=== PATIENT | female | born 1970 | race Caucasian/White ===

== ENCOUNTER 2021-01-12 12:34 | Emergency (ER) | payer BC, SELFPAY ==
[2021-01-12 12:40] VITALS: BP 129/60; PULSE 82; RESP 16; TEMP 36.8; O2SAT 98
[2021-01-12] MEDS: Balanced Salt Solution 15 ML BTL (12:54)
[2021-01-12] MEDS: Fluorescein STRIPS 100/BOX 1 MG (12:54)
--- NOTE | 2021-01-12 13:00 | ED.GENADUL_ITS ---
Discharge Plan Disposition Patient Disposition: HOME Condition: Improving Discharge Details Clinical Impression: Abrasion of left cornea Primary Care Provider: Niya Angel ED Provider: Faisal Malagon Home Meds and New Rx's Prescriptions: Continued lorazepam [Ativan] 0.5 mg Tablet 0.5 mg PO PRN PRNRF: 0 zolpidem [Ambien] 10 mg Tablet 10 mg PO RF: 0 bupropion HCl [Wellbutrin XL] 150 mg Tablet Extended Release 24 Hr 1 mg PO BID RF: 0 Discharge Instructions Instructions: Corneal Abrasion (ED) Additional Instructions: Please use a cool compress to reduce discomfort. May use Tylenol and ibuprofen as needed for pain. We will ask our care management team to arrange a follow-up for you at [facility]. Hold use of contacts until cleared by optometry. Please use erythromycin ointment 4-5 times daily. Return to the emergency room for any acute concerns. Medical Decision Making 50-year-old female presents from home. She wears contact lenses. [place] she felt foreign object in her eye and then felt pain with blinking. She removed her contact lens. This morning she has been injected and painful eye that is light sensitive. Visual daily as per nursing note (20/20 affected eye). Slit-lamp exam reveals corneal abrasions that are superficial, no foreign body seen. Patient will continue to hold the use of contact lens, place her on erythromycin ointment, will arrange a follow-up for her with [facility] for recheck. She is stable and appropriate for discharge home at this time. HPI General Mode of arrival: ambulatory . Date/Time Provider Initiated Documentation: 01/12/21 12:40 . Limitations to Documentation: no limitations . Information obtained by: patient . History of Present Illness 50 year old F presents to the emergency department with the chief complaint of Left eye pain abruptly last night, feels like foreign body, described as moderate, Quality is described as dull and constant, and is localized to the eyes and left. Patient reports no radiation. Patient started experiencing this hour(s) and it has been constant. No relieving factors improve symptom(s), No exacerbating factors reported . Patient notes no other symptoms.. Patient did receive the following treatments prior to arrival, none Related Data Home Medications Medication Instructions Recorded Confirmed bupropion HCl [Wellbutrin XL] 1 mg PO BID 01/12/21 01/12/21 lorazepam [Ativan] 0.5 mg PO PRN PRN 01/12/21 01/12/21 zolpidem [Ambien] 10 mg PO 01/12/21 Allergies Allergy/AdvReac Type Severity Reaction Status Date / Time red dye Allergy Unverified 01/12/21 12:40 Sulfa (Sulfonamide Allergy Unverified 01/12/21 12:40 Antibiotics) General Stated Complaint: EyeProblem PAT: 3 Review of Systems Narrative: Wears contact lenses. Removed last night. Otherwise healthy. [facility] Social History Smoking/Tobacco Use Status: Current-Occasional Tobacco Type: cigarettes Smoking risk assessment performed?: Yes Alcohol Intake: current Drug use: Occasionally Substance use type: marijuana Do you feel safe at home: Yes Do you feel safe in your relationship?: Yes Exam Narrative Exam Narrative: GEN: awake, alert, oriented 3. Pleasant, well groomed, interactive. HEAD: Normocephalic, atraumatic ENT: Mucous membranes moist, oropharynx unremarkable, External ear exam unremarkable EYES: PERRL, EOMI, left eye conjunctival injection, mild periorbital swelling. Globes are soft bilaterally. Slit-lamp exam with unremarkable white exam. Left with no [place] sign. There is superficial corneal abrasions present, lid everted and no foreign body seen. NECK: Full ROM, no DAVID, no menigismus CHEST/RESP: Nontender, clear to auscultation bilateral, no wheeze/rhonchi/rales CARDIOVASCULAR: RRR, no murmur, rub ann marie. 2+ Rad pulse bilateral Neuro: Grossly normal neurologic exam, conversant, interactive. Psych: Speech fluent, thoughts congruent, affect normal Course Vital Signs Vital signs: Vital Signs Temperature 36.8 C 01/12/21 12:40 Pulse 82 01/12/21 12:40 Respiratory Rate 16 01/12/21 12:40 Blood Pressure 129/60 01/12/21 12:40 Pulse Oximetry 98 01/12/21 12:40 Temperature 36.8 C 01/12/21 12:40 Temperature Source Temporal Artery Scan 01/12/21 12:40 Pulse 82 01/12/21 12:40 Respiratory Rate 16 01/12/21 12:40 Respiratory Effort 01/12/21 12:44 Blood Pressure 129/60 01/12/21 12:40 Blood Pressure Position Sitting 01/12/21 12:40 Pulse Oximetry 98 01/12/21 12:40 Oxygen Delivery Method Room Air 01/12/21 12:40 Oxygen Flow Rate 0 01/12/21 12:40
[2021-01-12] MEDS: Tetracaine 0.5% 4 ML BTL (13:05)
[2021-01-12] MEDS: Erythromycin Ophth Oint 3.5 GM TUBE OS (14:04)
--- NOTE | 2021-01-12 14:21 | NUR.NOTE ---
Nursing Note: Referral and provider note faxed to [facility] [place] in [place], [place] for follow up WedJanuary 13. Tabitha Larry [phone] F [phone]
== END 2021-01-12 13:50 | disposition home or self-care (01) ==
PROVIDERS: Emergency Provider Emergency Medicine; PCP Family Medicine
DX: S05.02XA Injury of conjunctiva and corneal abrasion without foreign body, left eye, initial encounter (principal); X58.XXXA Exposure to other specified factors, initial encounter
CPT/HCPCS: 99283